=== PATIENT | female | born 1970 | race Caucasian/White ===

== ENCOUNTER 2016-11-28 15:48 | Emergency (ER) | payer OTHER ==
[~2016-11-28] VITALS: Ht 170.2 cm; Wt 76.2 kg
== END 2016-11-28 16:50 | disposition home or self-care (01) ==
LOC: CED 15:48 → CFTX 15:48
DX: S16.1XXA Strain of muscle, fascia and tendon at neck level, initial encounter (principal); Z87.891 Personal history of nicotine dependence; V49.40XA Driver injured in collision with unspecified motor vehicles in traffic accident, initial encounter
CPT/HCPCS: 99283